=== PATIENT | male | born 1980 | race Hispanic/Latino ===

== ENCOUNTER 2018-04-11 19:00 | Emergency (ER) | payer SELFPAY ==
[2018-04-11] MEDS ORDERED: HYDRALAZINE HCL 20 MG/ML VIAL ONE ×2 (19:24→20:43)
[2018-04-11] MEDS ORDERED: METHYLPREDNISOLONE SOD SUCC 125MG/2ML VIAL ONE (19:24)
[2018-04-11] MEDS ORDERED: DEXAMETHASONE SOD PHOSPHATE 10MG/ML 1ML VIAL ONE (19:24)
[2018-04-11 19:39] LABS: BASOPHILS % (AUTO) 0.6 % (0.0-5.0); EOSINOPHILS % (AUTO) 5.5 % (0.0-8.0); LYMPHOCYTES % (AUTO) 34.6 % (21.0-51.0); MEAN CORPUSCULAR HEMOGLOBIN 33.2 pg (27.0-33.0); MEAN CORPUSCULAR VOLUME 94.7 fL (79-99); MONOCYTES % (AUTO) 8.4 % (3.0-13.0); NEUTROPHILS % (AUTO) 50.9 % (40.0-77.0); NUCLEATED RED BLOOD CELLS 0.1 % (0.0-0.19); PLATELET COUNT (AUTO) 261 K/uL (130-400); RED BLOOD CELL COUNT(AUTO) 4.96 MIL/uL (4.50-6.20); WHITE BLOOD COUNT (AUTO) 8.1 K/uL (4.8-10.8)
[2018-04-11] MEDS ORDERED: ACYCLOVIR 800 MG TABLET PO SCH (19:45)
[2018-04-11 20:04] LABS: POTASSIUM 3.6 mmol/L (3.5-5.1)
[2018-04-11 20:11] LABS: ALBUMIN 3.7 g/dL (3.5-5.0); BILIRUBIN,TOTAL 0.4 mg/dL (0.2-1.0); TOTAL PROTEIN, SERUM 8.1 g/dL (6.0-8.3)
[2018-04-11 20:15] LABS: RAPID GROUP A STREP NEGATIVE (NEGATIVE)
[2018-04-11] MEDS ORDERED: HYDROCHLOROTHIAZIDE 25 MG TABLET ONE (20:53)
== END 2018-04-11 21:22 | disposition home or self-care (01) ==
LOC: EDH 19:00
DX: G51.0 Bell's palsy (principal); I10 Essential (primary) hypertension; Z72.0 Tobacco use
CPT/HCPCS: 36415; 70450; 71045; 80053; 85025; 87804 ×2; 87880; 93005; 96365; 96372 ×2; 96376; 99285; J0360 ×2; J1100; J2930